=== PATIENT | male | born 1985 | race Two or more races ===

== ENCOUNTER 2025-01-27 11:09 | Emergency (ER) | payer OTHER ==
[~2025-01-27] VITALS: Ht 170.2 cm; Wt 93.0 kg
[2025-01-27 11:24] VITALS: TEMP 98.4
[2025-01-27 12:23] LABS: PLATELET COUNT (AUTO) 203 K/uL (150-450); RED BLOOD CELL COUNT(AUTO) 4.48 MIL/uL (4.5-6.0); RED CELL DISTRIBUTION WIDTH 13.4 % (11.5-15.0); WHITE BLOOD COUNT (AUTO) 10.4 K/uL (4.3-11.0)
[2025-01-27 12:40] LABS: CALCIUM, SERUM 8.8 mg/dL (8.5-10.1); CREATININE 0.7 mg/dL (0.6-1.3); SODIUM SERUM 139.0 mmol/L (136-145); UREA NITROGEN, BLOOD 6.0 mg/dL (7-18)
[2025-01-27 12:58] LABS: ASPARTATE AMINOTRANSFERASE 82.0 U/L (15-37); TOTAL PROTEIN, SERUM 8.1 g/dL (6.4-8.2)
[2025-01-27] MEDS: IV NS 0.9% 500 ML BAG IV ONE (13:00)
[2025-01-27] MEDS ORDERED: MAG HYDROX/AL HYDROX/SIMETH 30 ML UDC ONE (13:00)
[2025-01-27] MEDS: FAMOTIDINE/PF INJ 20 MG/2 ML VIAL IV ONE (13:00)
[2025-01-27] MEDS: MAG HYDROX/AL HYDROX/SIMETH 30 ML UDC PO ONE (13:00)
[2025-01-27] MEDS ORDERED: FAMOTIDINE/PF INJ 20 MG/2 ML VIAL IV ONE (13:00)
[2025-01-27] MEDS: LIDOCAINE VISCOUS 2% UD 15 ML UDC MM ONE (13:00)
[2025-01-27] MEDS ORDERED: LIDOCAINE VISCOUS 2% UD 15 ML UDC ONE (13:00)
[2025-01-27] MEDS ORDERED: OMEP20TA20 PO (13:12)
[2025-01-27 13:43] VITALS: BP 136/89; O2SAT 98
== END 2025-01-27 13:44 | disposition home or self-care (01) ==
LOC: ER 11:19
DX: K74.60 Unspecified cirrhosis of liver (principal); R10.13 Epigastric pain; M54.50 Low back pain, unspecified; F19.10 Other psychoactive substance abuse, uncomplicated; Z79.899 Other long term (current) drug therapy; Z86.79 Personal history of other diseases of the circulatory system
CPT/HCPCS: 99285; 74176; 96374; 76705; 85025; 80048; 83690; 80076; 36415; J1308